=== PATIENT | female | born 2000 | race Caucasian/White ===

== ENCOUNTER 2023-11-24 15:14 | Emergency (ER) | payer BC ==
[~2023-11-24] VITALS: Ht 160 cm; Wt 54.0 kg
[2023-11-24 15:21] VITALS: BP_SYST 136; PULSE 87; RESP 18; TEMP 98.3; O2SAT 98
[2023-11-24] MEDS: FAMOTIDINE 20 MG TABLET PO ONE (16:45)
[2023-11-24] MEDS ORDERED: PRED20TA PO (16:45)
[2023-11-24] MEDS: predniSONE 20 MG TABLET PO ONE (16:46)
[2023-11-24] MEDS ORDERED: EPIN0.3P3 IM (16:47)
[2023-11-24] MEDS ORDERED: FAMO40TA71 PO (16:48)
== END 2023-11-24 17:18 | disposition home or self-care (01) ==
LOC: SED 15:14
DX: T78.49XA Other allergy, initial encounter (principal); L50.9 Urticaria, unspecified; Z79.899 Other long term (current) drug therapy; Z79.2 Long term (current) use of antibiotics; Y92.89 Other specified places as the place of occurrence of the external cause
CPT/HCPCS: 99283; J7512